=== PATIENT | male | born 1990 | race Caucasian/White ===

== ENCOUNTER 2020-09-15 13:41 | Emergency (ER) | payer SELFPAY ==
[2020-09-15] MEDS ORDERED: Ketorolac Tromethamine 30 MG/ML VIAL ONE ×2 (14:27→18:06)
[2020-09-15 14:34] LABS: #Neutrophils 15.3 10x3/uL (1.5-8.4); %Basophils 0.2 % (0.0-2.0); %Lymphocytes 3.8 % (18.0-47.0); %Monocytes 5.8 % (0.0-10.0); %Neutrophils 89.7 % (40.0-75.0); Mean Corpuscular HGB CONC 35.6 g/dL (32.0-36.0); Mean Corpuscular Hemoglobin 30.2 pg (27.0-33.0); Mean Corpuscular Volume 85.1 fl (81.2-95.1); Mean Platelet Volume 10.2 fl (7.4-10.4); Platelet Count 221 10x3/uL (150-450); RBC Distribution Width 11.6 % (11.5-14.5); Red Blood Cell (RBC) Count 5.29 10x6/uL (4.32-5.72)
[2020-09-15 15:01] LABS: ALT (SGPT) 28 U/L (8-55); AST (SGOT) 31 U/L (5-34); Albumin 4.6 g/dL (3.5-5.0); Alkaline Phosphatase 78 U/L (40-110); Anion Gap 14 mmol/L (10-20); BUN (Urea Nitrogen) 15 mg/dL (8.9-20.6); Bilirubin, Total 1.7 mg/dL (0.2-1.2); Calc. Creatinine Clearance 0 mL/min (70-130); Calcium 9.3 mg/dL (7.8-10.44); Carbon Dioxide 23 mmol/L (22-29); Chloride 101 mmol/L (98-107); Globulin 2.9 g/dL (2.4-3.5); Glucose 120 mg/dL (70-105); Potassium 3.9 mmol/L (3.5-5.1); Protein, Total 7.5 g/dL (6.0-8.3); Sodium 134 mmol/L (136-145)
[2020-09-15 15:01] LABS: Bilirubin Neg (Negative); Blood, Urine Negative (Negative); Clarity Clear (Clear); Glucose, Urine (Dipstick) Normal (Negative); Ketone, Urine 15 mg/dL (Negative); Leukocyte 25 (Negative); Nitrite Negative (Negative); Protein, Urine (Dipstick) 15 mg/dl (Neg-Trace); Specific Gravity, Urine 1.015 (1.002-1.036)
[2020-09-15 15:12] LABS: Bacteria/HPF None Seen HPF (None Seen); RBC/HPF None Seen HPF (0-3); Squamous Epithelial 0-3 HPF (0-3); WBC/HPF 0-3 HPF (0-3)
[2020-09-15] MEDS ORDERED: Ondansetron PF 4 MG/2 ML Vial ONE ×2 (15:15→16:02)
[2020-09-15] MEDS ORDERED: PROPOFOL 20 ML ONE (16:01)
[2020-09-15] MEDS ORDERED: Lidocaine 4% PF 5 ML AMP ONE (16:01)
[2020-09-15] MEDS ORDERED: Dexamethasone 20 MG/5 ML VIAL ONE (16:02)
[2020-09-15] MEDS ORDERED: EPINEPHrine 1 MG/ML AMP ONE (16:16)
[2020-09-15] MEDS ORDERED: Bupivacaine 0.25% HCL 30 ML VIAL ONE (16:16)
[2020-09-15] MEDS ORDERED: cefOXitin Sodium/Dextrose,Iso 2 GM in Premix Bag 1 BAG IVPB SCH (16:30)
[2020-09-15 17:09] LABS: SARS-CoV-2 NAA Rapid Test Not Detected (NotDetected)
[2020-09-15] MEDS ORDERED: Fentanyl 100 MCG/2 ML VIAL ONE ×2 (17:27→18:16)
[2020-09-15] MEDS ORDERED: diphenhydrAMINE 50 MG/ML VIAL ONE (17:46)
[2020-09-15] MEDS ORDERED: SUGAMMADEX SODIUM 500 MG/5 ML VIAL ONE (18:07)
[2020-09-15] MEDS ORDERED: Meperidine HCl/PF 25 MG/ML VIAL ONE (18:20)
== END 2020-09-15 17:12 | disposition admitted as inpatient to this hospital (09) ==
LOC: CSHERS 13:41
DX: K35.80 Unspecified acute appendicitis (principal); F17.220 Nicotine dependence, chewing tobacco, uncomplicated
CPT/HCPCS: 74176; 80053; 81003; 81015; 83690; 85025; 88304; 96374; 96375; J0171; J0694; J1100; J1200; J1885; J2175; J2405; J2704; J3010; S0020; U0002